=== PATIENT | female | born 1950 | race Caucasian/White ===

== ENCOUNTER 2017-12-03 05:30 | Day surgery (SDC) | payer MEDICARE, BC ==
[2017-12-03] MEDS ORDERED: fentaNYL 100 MCG/2 ML SDV IV ONE (05:31)
[2017-12-03] MEDS ORDERED: Midazolam 1 MG/ML 2 ML SDV IV ONE (05:31)
[2017-12-03] MEDS ORDERED: Midazolam 1 MG/ML 2 ML SDV ONE ×2 (05:50→05:56)
[2017-12-03] MEDS ORDERED: fentaNYL 100 MCG/2 ML SDV ONE ×2 (05:51→05:56)
[2017-12-03] MEDS ORDERED: Dextrose 5%-0.45% NaCl 1,000 ML IV SCH (06:00)
[2017-12-03] MEDS ORDERED: Sodium Chloride 0.9% 10 ML Syringe FLUSH PRN (06:00)
[2017-12-03 07:19] VITALS: BP 144/71
--- NOTE | 2017-12-03 08:14 | OR ---
DATE: 12/03/2017 PROCEDURES: Esophagogastroduodenoscopy, narrow-band imaging, multiple pinch biopsies and brush biopsy for cytology. INSTRUMENT USED: GIF-H180 Olympus video panendoscope. PREMEDICATIONS: No oral topical anesthesia used. Fentanyl 100 mcg intravenous, Versed 2 mg intravenous. Nasal O2 cannula. The procedure was done under pulse oximetry, BP recording, and android framework developer. INDICATION: The patient with high dysphagia unexplained and not responsive to medical measures, on long-term low-dose aspirin, also on PPI. DESCRIPTION OF PROCEDURE: Esophagogastroduodenoscopy is performed for detection of any active erosive lesions, Manuel esophagus and/or malignancy also under consideration, H. pylori status to be determined, esophageal dilatations if indicated, endoscopic hemostasis therapy if needed. The scope was passed with ease. Adequate visualization of the esophagus was made from proximal to distal areas. No upper esophageal lesions identified. No distal esophageal stricture. No uphill or downhill esophageal varices. No Magda-Mckeon tear. No evidence of erosive esophagitis by [place] criteria. No esophageal polyp or tumor mass identified. Z-line was seen at around 40 cm distal to the oral verge, configuration consistent with grade 1 by Zapp classification. No proximal gastric varices noted. Gastric fundus examination by retroflexion showed no polypoid lesions. No gastric malignancy noted. Scattered longitudinal gastric antral erosions were noted along with 1-cm sized benign-appearing ulcer. NBI views were obtained. Photographs were taken. Multiple pinch biopsies, 6 in number, were taken from the gastric antral ulcer and sent for histopathology. Henrietta biopsy was obtained for cytology. Macroscopic appearance of the gastric antrum was consistent with "watermelon" stomach. Duodenal bulb showed no ulcer. Visualized second part of the duodenum was unremarkable. Multiple pinch biopsies were obtained from the gastric antrum and proximal body and sent for PyloriTek test for H. pylori and histopathology. No bleeding was noted from any of the visualized areas at the completion of examination. Photographs were taken of duodenal bulb, gastric antrum, fundus, and distal esophagus. IMPRESSION: 1. Gastric antral erosions and ulcers. 2. "Watermelon Stomach' The patient tolerated the procedure well. [facility] /[id number] [facility]
== END 2017-12-03 09:10 | disposition home or self-care (01) ==
LOC: DL.ENDO 05:30
PROVIDERS: ATTEND Internal Medicine Gastroenterology
DX: K31.819 Angiodysplasia of stomach and duodenum without bleeding (principal); K25.9 Gastric ulcer, unspecified as acute or chronic, without hemorrhage or perforation; K21.9 Gastro-esophageal reflux disease without esophagitis; I25.10 Atherosclerotic heart disease of native coronary artery without angina pectoris; E78.5 Hyperlipidemia, unspecified; F32.9 Major depressive disorder, single episode, unspecified
CPT/HCPCS: 43239; 87077; J7042; 88112; 88305; J2250; J3010

== ENCOUNTER 2017-12-06 06:12 | Day surgery (SDC) | payer MEDICARE, BC ==
[~2017-12-06 06:12] MED LIST: Dextrose 5%-0.45% NaCl 1,000 ML IV SCH; Midazolam 1 MG/ML 2 ML SDV ONE; Sodium Chloride 0.9% 10 ML Syringe FLUSH PRN; fentaNYL 100 MCG/2 ML SDV ONE
[2017-12-06] MEDS ORDERED: Midazolam 1 MG/ML 2 ML SDV IV ONE ×6 (06:13→07:03)
[2017-12-06] MEDS ORDERED: fentaNYL 100 MCG/2 ML SDV IV ONE ×3 (06:13→06:58)
--- NOTE | 2017-12-06 07:49 | OR ---
DATE: 12/06/2017 PROCEDURE: Total colonoscopy. INSTRUMENT USED: CF-H180AL Olympus video colonoscope. PREMEDICATIONS: Fentanyl 100 mcg intravenous, Versed 3 mg intravenous. Nasal O2 cannula. The procedure was done under pulse oximetry, BP recording, and youth nutritional monitor. INDICATION: Screening colonoscopic examination is done for detection of any polypoid lesions and removal, endoscopic hemostasis therapy if needed. DESCRIPTION OF PROCEDURE: Initial rectal exam was unremarkable. Rigid anoscopy was normal. The colonoscope was passed with ease. Few scattered were noted in the distal left colon. The scope was passed with ease up to the ileocecal area, photographs were taken of normal-appearing cecum, identified by landmarks of appendiceal orifice and double-bulged ileocecal folds. No bleeding was noted from any of the visualized areas at the commencement of the examination. No stricture. No vascular ectasia. No large isolated ulcerations seen. No evidence of diffuse inflammatory bowel disease in the form of friability, contact bleeding, or ulcerations. No polyp or tumor mass identified. Probing the proximal sides of folds and flexures, using adequate distention and clearing up the stool material, withdrawal of the scope was made, cecum to rectum time over 6 minutes. No bleeding was noted from any of the visualized areas at the completion of examination. IMPRESSION: Diverticulosis. The patient tolerated the procedure well. [facility] /[id number]
[2017-12-06 09:46] VITALS: BP 141/92
== END 2017-12-06 09:30 | disposition home or self-care (01) ==
LOC: DL.ENDO 06:12
PROVIDERS: ATTEND Internal Medicine Gastroenterology
DX: Z12.11 Encounter for screening for malignant neoplasm of colon (principal); K57.30 Diverticulosis of large intestine without perforation or abscess without bleeding; I25.10 Atherosclerotic heart disease of native coronary artery without angina pectoris; K21.9 Gastro-esophageal reflux disease without esophagitis; E78.5 Hyperlipidemia, unspecified; F32.9 Major depressive disorder, single episode, unspecified
CPT/HCPCS: G0121; J2250; J3010; J7042